=== PATIENT | male | born 1985 | race Caucasian/White ===

== ENCOUNTER 2021-06-20 22:00 | Emergency (ER) | payer SELFPAY ==
[~2021-06-20] VITALS: Ht 172.7 cm; Wt 80.0 kg
[2021-06-20] MEDS ORDERED: CLIN-95 PO (22:35)
--- NOTE | 2021-06-20 22:35 | PHYS DOC ---
Adult General Chief Complaint Chief Complaint: DENTAL PROBLEM HPI HPI Patient is a 36-year-old male who presents with dental pain. States he has pain in the right bottom molar, has been going on off and on for several months but had not seen a dentist. States that 6 out of 10, dull and achy in nature. Denies any recent traumas, travels, illnesses, fevers, pain or trouble swallowing, neck pain, nausea, vomiting. Review of Systems Review of Systems Review of systems otherwise unremarkable except noted in HPI Physical Exam Physical Exam Constitutional: Well developed, well nourished, no acute distress, non-toxic appearance. [] HENT: Normocephalic, atraumatic, bottom right molar, third from the back with a large dental carry Eyes: conjunctiva normal, no discharge. [] Neck: Normal range of motion, no tenderness, supple, no stridor, no lymphadenopathy. [] Cardiovascular:Heart rate regular rhythm, no murmur [] Neurologic: Alert and oriented X 3, normal motor function, normal sensory function, no focal deficits noted. [] Psychologic: Affect normal, judgement normal, mood normal. [] EKG EKG [] Radiology/Procedures Radiology/Procedures [] Heart Score C/O Chest Pain: No Risk Factors: Risk Factors: DM, Current or recent (<one month) smoker, HTN, HLP, family history of CAD, obesity. Risk Scores: Risk Factors: DM, Current or recent (<one month) smoker, HTN, HLP, family history of CAD, obesity. Course & Med Decision Making Course & Med Decision Making Patient is a 36-year-old male who presents with dental pain Vital signs not concerning. Physical exam noted above. Patient given Tylenol, ibuprofen, clindamycin and oxycodone for pain. Discussed pain management at home including Tylenol, ibuprofen and Orajel. Advised to take his antibiotics as prescribed. Vies to follow-up first thing in the morning with a dentist to set up an appointment to discuss root canal versus extraction. Gave return precautions to the ED. Patient grateful, verbalized understanding and agree with plan of discharge. Dragon Disclaimer Dragon Disclaimer This electronic medical record was generated, in whole or in part, using a voice recognition dictation system. Departure Departure: Impression: Primary Impression: Pain, dental Disposition: HOME / SELF CARE / HOMELESS Referrals: PCP,NO (PCP) MAYCOL BOUDREAUX MD Patient Instructions: Dental Pain Additional Instructions: Thank you for coming into the emergency department tonight and allowing us to take care of you. Please read the attached information carefully to go back over some of the things we discussed. You can use Tylenol, ibuprofen and Orajel as we discussed tomorrow. Is very important you call the dentist in the morning at some of the numbers provided you to discuss need for root canal versus extraction versus filling. Please come back with new or concerning symptoms as we discussed. Scripts Clindamycin Hcl (CLINDAMYCIN HCL) 300 Mg Capsule 1 CAP PO TID for dental infx for 7 Days, #21 CAP Prov: OLI DUEÑAS MD 06/20/21 OLI DUEÑAS MD Jun 20, 2021 22:35
[2021-06-20 22:58] VITALS: BP 138/70
[2021-06-20] MEDS ORDERED: oxyCODONE/APAP 5/325 1 TAB TABLET PO ONE (23:00)
[2021-06-20] MEDS ORDERED: CLINDAMYCIN HCL 150 MG CAPSULE PO ONE (23:00)
[2021-06-20] MEDS ORDERED: IBUPROFEN 600 MG TABLET. PO ONE (23:00)
[2021-06-21] MEDS ORDERED: CHLO15MO2 PO (08:04)
[2021-06-21] MEDS ORDERED: OXYC-314 PO (08:04)
[2021-06-21] MEDS ORDERED: CLIN-95 PO (08:58)
== END 2021-06-20 23:00 | disposition home or self-care (01) ==
LOC: ER 22:00
DX: K02.9 Dental caries, unspecified (principal)
CPT/HCPCS: 99284

== ENCOUNTER 2021-06-21 07:07 | Emergency (ER) | payer SELFPAY ==
[~2021-06-21] VITALS: Ht 172.7 cm; Wt 80.0 kg
[~2021-06-21 07:07] MED LIST: CLIN-95 PO
[2021-06-21 07:18] VITALS: BP 131/89
--- NOTE | 2021-06-21 07:53 | PHYS DOC ---
Past History Past Medical History: GERD Additional Past Surgical Histo: Oral surgery, R ankle surgery Smoking: Non-smoker Alcohol Use: None Drug Use: None General Adult EDM: Chief Complaint: TOOTH ACHE OR PAIN HPI: HPI: Patient is a 34 year old male who presents with tooth pain for the past three days. His tooth pain is located in a bottom right molar. He was seen in the ED last night and was given a dose of Clindamycin and was sent home with 2 Percocets. He took a percocet last night which helped him sleep, but he woke up again three hours later with severe pain. His last Percocet was at 3AM this morning. He has not been able to fill his Clindamycin prescription since the pharmacy is not open yet. He otherwise denies any other symptoms. Review of Systems: Review of Systems: Constitutional: Denies fever or chills Eyes: Denies redness or eye pain HENT: Positive for tooth pain, Denies nasal congestion or sore throat Respiratory: Denies cough or shortness of breath Cardiovascular: Denies chest pain or palpitations GI: Denies abdominal pain, nausea, or vomiting Musculoskeletal: Denies back pain or joint pain Neurologic: Denies headache or sensory changes Complete systems were reviewed and found to be within normal limits, except as documented in this note. Allergies: Allergies: Allergies Coded Allergies Type Severity Reaction Last Updated Verified Penicillins Allergy Intermediate 06/20/21 Yes amoxicillin Allergy Intermediate 06/20/21 Yes Physical Exam: PE: Constitutional: Well developed, well nourished, no acute distress, non-toxic appearance HENT: Normocephalic, atraumatic, erythema and swelling to gums beneath mandibular right first molar Eyes: Conjunctiva normal, no discharge Neck: Normal range of motion, supple Lungs & Thorax: Lungs CTAB, heart sounds normal, No respiratory distress, equal chest rise and fall Skin: Warm, dry, no erythema, no rash Extremities: No tenderness, no edema Neurologic: Alert and oriented X 3, no focal deficits noted Psychologic: Affect normal, judgment normal Current Patient Data: Vital Signs: Vital Signs Date Time Temp Pulse Resp B/P (MAP) Pulse Ox O2 Delivery O2 Flow Rate FiO2 06/21/21 07:18 97.9 71 16 131/89 (103) 99 Room Air EKG: EKG: [] Radiology/Procedures: Radiology/Procedures: [] Heart Score: C/O Chest Pain: N/A Course & Med Decision Making: Course & Med Decision Making Pertinent Labs and Imaging studies reviewed. (See chart for details) Patient presented with mandibular right first molar pain for the past three days. Physical exam showed inflammation and swelling. Bupivicaine block and Dexamethasone given in ED. Patient admitted relief. Sent Clindamycin and Percocet prescription with Peridex mouthwash. Patient stable for discharge with outpatient follow-up with PCP. Discussed findings and plan with patient, who acknowledges understanding and agreement. [] Dragon Disclaimer: Dragon Disclaimer: This electronic medical record was generated, in whole or in part, using a voice recognition dictation system. Departure Departure: Impression: Primary Impression: Pain, dental Additional Impression: Dental caries Disposition: HOME / SELF CARE / HOMELESS Condition: STABLE Referrals: PCPAFSANEH (PCP) Patient Instructions: Dental Caries, Toothache-Brief Additional Instructions: May continue to use [id number] ibuprofen as needed. Scripts Clindamycin Hcl (CLINDAMYCIN HCL) 300 Mg Capsule 1 CAP PO TID for dental infx for 7 Days, #21 CAP Prov: TONY DENISE DO 06/21/21 Oxycodone Hcl/Acetaminophen (ENDOCET 5-325 TABLET) 1 Each Tablet 0.5-1 TAB PO Q6HRS PRN for PAIN MDD 4 Tablet(s), #8 TAB 0 Refills Prov: TONY DENISE DO 06/21/21 Chlorhexidine Gluconate (PERIDEX) 15 Ml Mouthwash 15 ML PO BID for Dental infection for 7 Days, #473 ML 0 Refills Prov: TONY DENISE DO 06/21/21 TONY DENISE DO Jun 21, 2021 07:53
[2021-06-21] MEDS ORDERED: BUPIVACAINE MPF 0.5% 30 ML VIAL. SQ ONE (08:00)
[2021-06-21] MEDS ORDERED: DEXAMETHASONE 4 MG TABLET PO ONE (08:00)
[2021-06-21] MEDS ORDERED: OXYC-314 PO (08:04)
[2021-06-21] MEDS ORDERED: CHLO15MO2 PO (08:04)
[2021-06-21] MEDS ORDERED: CLIN-95 PO (08:58)
== END 2021-06-21 09:08 | disposition home or self-care (01) ==
LOC: ER 07:07
DX: K02.9 Dental caries, unspecified (principal); K21.9 Gastro-esophageal reflux disease without esophagitis; Z88.0 Allergy status to penicillin; Z88.1 Allergy status to other antibiotic agents
CPT/HCPCS: 96372; 99283; J3490; J8540

== ENCOUNTER 2021-09-05 18:43 | Emergency (ER) | payer SELFPAY ==
[~2021-09-05] VITALS: Ht 177.8 cm; Wt 82.9 kg
[~2021-09-05 18:43] MED LIST changes: +CHLO15MO2 PO; +OXYC-314 PO
--- NOTE | 2021-09-05 18:47 | PHYS DOC ---
Past History Past Medical History: GERD Additional Past Surgical Histo: Oral surgery, R ankle surgery Smoking: Non-smoker Alcohol Use: None Drug Use: None Adult General HPI HPI Patient is a 36-year-old male who presents with a chief complaint of dental pain, facial swelling. States he saw his dentist 2 days ago and is scheduled to have a tooth removed, and at his appointment was started on antibiotics and told that as soon as his antibiotics they felt confident about removing his tooth. States he has had some swelling around the cheek where they shot him with lidocaine. States that he does not take his azithromycin given for his infection is working. Denies any fevers, pain or trouble swallowing, chest pain, shortness of breath, abdominal pain, nausea, vomiting. States he is able to eat and drink normally. States he took some Tylenol earlier in the day. Review of Systems Review of Systems Review of systems otherwise unremarkable except noted in HPI Allergies Allergies Allergies Coded Allergies Type Severity Reaction Last Updated Verified Penicillins Allergy Intermediate 06/26/21 Yes amoxicillin Allergy Intermediate 06/26/21 Yes Physical Exam Physical Exam Constitutional: Well developed, well nourished, no acute distress, non-toxic appearance. [] HENT: Normocephalic, atraumatic, bilateral external ears normal, oropharynx moist, no oral exudates, poor dentition generally, mild swelling in right lower cheek with no fluctuance or induration, erythema or warmth, nose normal. [] Eyes: conjunctiva normal, no discharge. [] Neck: Normal range of motion, no tenderness, supple, no stridor, no lymphadenopathy. [] Cardiovascular:Heart rate regular rhythm, no murmur [] Lungs & Thorax: No respiratory distress Skin: Warm, dry, no erythema, no rash. [] Neurologic: Alert and oriented X 3,no focal deficits noted. [] Psychologic: Affect normal, judgement normal, mood normal. [] EKG EKG [] Radiology/Procedures Radiology/Procedures [] Heart Score C/O Chest Pain: No Risk Factors: Risk Factors: DM, Current or recent (<one month) smoker, HTN, HLP, family history of CAD, obesity. Risk Scores: Risk Factors: DM, Current or recent (<one month) smoker, HTN, HLP, family history of CAD, obesity. Course & Med Decision Making Course & Med Decision Making Patient is a 36-year-old male presents with facial swelling Vital signs not concerning. Physical exam noted above. Given pain medicine. Switched antibiotics and started in the ED. Advised to follow-up in the morning with dentist update on ED visit. Gave return precautions to the ED. Patient grateful, verbalized understanding and agreed with plan of discharge. Dragon Disclaimer Dragon Disclaimer This electronic medical record was generated, in whole or in part, using a voice recognition dictation system. Departure Departure: Impression: Primary Impression: Pain, dental Additional Impression: Facial swelling Disposition: HOME / SELF CARE / HOMELESS Condition: GOOD Referrals: PCP,NO (PCP) MAYCOL BOUDREAUX MD Patient Instructions: Dental Pain Additional Instructions: Thank you for coming into the emergency department tonight and allowing us to take care of you. Please read the attached information carefully go over things we discussed. Please take your antibiotics as prescribed until gone. Please begin a Tylenol, ibuprofen, Benadryl and Orajel regimen as we discussed. Please take your prescription pain medicine every 6 hours as needed. Please be aware that also they also have Tylenol in them and do not exceed 3000 mg of Tylenol daily. Please follow-up in the morning with a dentist. You are given contact information for local free dentists. Please come back with new or concerning symptoms as we discussed. Problem Qualifiers OLI DUEÑAS MD Sep 05, 2021 18:47
[2021-09-05] MEDS ORDERED: CLINDAMYCIN HCL 150 MG CAPSULE PO ONE (19:15)
[2021-09-05] MEDS ORDERED: ACETAMINOPHEN/CODEINE 300/30MG 4TABLET STARTPACK. PO ONE (19:15)
[2021-09-05] MEDS ORDERED: CLIN-95 PO (19:44)
[2021-09-05 19:45] VITALS: BP 122/72
== END 2021-09-05 19:47 | disposition home or self-care (01) ==
LOC: ER 18:43
DX: K08.89 Other specified disorders of teeth and supporting structures (principal); R22.0 Localized swelling, mass and lump, head; K21.9 Gastro-esophageal reflux disease without esophagitis; Z88.0 Allergy status to penicillin; Z88.1 Allergy status to other antibiotic agents
CPT/HCPCS: 99283